=== PATIENT | male | born 2005 | race Caucasian/White ===

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

== ENCOUNTER 2024-01-19 02:17 | Emergency (ER) | payer BC, MEDICAID, SELFPAY ==
[2024-01-19 02:28] VITALS: BP 118/67; PULSE 79; RESP 16; TEMP 36.7; O2SAT 96
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
[2024-01-19 03:05] VITALS: BP 118/67; PULSE 66; RESP 14; O2SAT 96
[2024-01-19 03:35] VITALS: BP 100/56; PULSE 79; RESP 14; O2SAT 94
[2024-01-19 04:05] VITALS: BP 101/53; PULSE 74; RESP 15; O2SAT 95
== END 2024-01-19 04:20 | disposition home or self-care (01) ==
PROVIDERS: Emergency Provider Emergency Medicine; PCP Family Medicine
DX: S00.03XA Contusion of scalp, initial encounter (principal); Y04.2XXA Assault by strike against or bumped into by another person, initial encounter
CPT/HCPCS: 70450; 70486; 73130; 99284

== ENCOUNTER 2024-02-10 10:54 | Emergency (ER) | payer OTHER, SELFPAY ==
[2024-02-10 10:56] VITALS: BP 127/77; PULSE 88; RESP 18; TEMP 36.4; O2SAT 99
--- NOTE | 2024-02-10 10:56 | CT_ITS ---
WS: [id number] CT HEAD NONCONTRAST HISTORY: Seizure TECHNIQUE: Contiguous axial imaging performed through the brain in 2.5 mm imaging. Bone and soft tiss ue windows. Sagittal and coronal reformats reviewed. All CT scans at [facility] use at least one of these dose optimization techniques: automated exposure control; mA and/or kV adjustment per pa tient size (includes targeted exams where dose is matched to clinical indication); or iterative recon struction. DLP: 1024.58 mGy.cm COMPARISON: 12/30/2023 No acute intracranial hemorrhage, midline shift or mass effect. No atrophy or prior infarcts or herniation. Ventricles: Normal size with no hydrocephalus. Paranasal sinuses: As visualized are clear. Mastoid air cells: Well pneumatized. Calvarium and scalp: Skull is intact with no soft tissue edema or swelling. CT/CT head wo con* [id number] IMPRESSION: Negative head CT.
--- NOTE | 2024-02-10 11:01 | PC.NURSE ---
SEIZURE PADS PLACED ON BED RAILS.
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
[2024-02-10 11:30] VITALS: BP 128/79; PULSE 83; O2SAT 99
[2024-02-10 12:28] LABS: Basophils % 0.3 %; Lymphocytes # 0.7 10^3/uL (1.5-6.5); Lymphocytes % 7.5 %; Mean Corpuscular HGB Conc 33.8 g/dL (30-55); Mean Corpuscular Hemoglobin 31.1 pg (27-33); Mean Platelet Volume 11.7 fL (7.4-10.4); Monocytes # 0.3 10^3/uL (0.2-0.9); Monocytes % 3.3 %; Neutrophils # 7.98 10^3/uL (1.8-8.0); Neutrophils % 88.2 %; Nucleated Red Blood Cells % 0 %; Platelet Count 188 10^3/cmm (157-399); Red Blood Count 4.89 10^6/uL (3.85-5.65); Red Cell Distribution Width 11.8 % (12.1-15.1); White Blood Count 9.05 10^3/uL (4.5-13.0)
[2024-02-10 12:30] VITALS: BP 108/61; PULSE 52; O2SAT 97
[2024-02-10 12:31] LABS: Amphetamines Screen Urine Negative (Negative); Barbiturates Screen Urine Negative (Negative); Benzodiazepines Screen Urine Negative (Negative); Cocaine Screen Urine Negative (Negative); Opiate Screen Urine Negative (Negative); PCP Screen Urine Negative (Negative); THC Screen Urine Positive (Negative)
[2024-02-10 13:02] LABS: Lactic Sepsis W/Reflex 1.2 mmol/L (0.5-2.2)
[2024-02-10 13:03] LABS: Alanine Aminotransferase 11 U/L (0-41); Alkaline Phosphatase 96 U/L (40-130); Anion Gap 13.2 (5-19); Aspartate Amino Transferase 13 U/L (0-40); Blood Urea Nitrogen 17 mg/dL (6-20); Calcium 9.3 mg/dL (8.5-10.5); Carbon Dioxide 25 mmol/L (22-29); Chloride 104 mmol/L (98-107); Creatine Phosphokinase 211 U/L (39-308); Creatinine Clr Calc Pharmacy 145.3706; Globulin 2.3 g/dL (1.3-4.6); Glomerular Filtration Rate 124.5 mL/min (90-130); Glucose 102 mg/dL (65-115); Osmolality Calculated 286 mOsm/kg (285-295); Potassium 5.2 mmol/L (3.5-5.1); Sodium 137 mmol/L (136-145); Total Bilirubin 0.4 mg/dL (0.15-1.2); Total Protein 7.3 g/dL (6.6-8.7)
[2024-02-10 13:07] LABS: Alcohol Level < 10 mg/dL (0-10)
[2024-02-10 13:16] LABS: Add Urine Culture? No; Add Urine Microscopic? YES; Bacteria Urine TRACE /hpf; Bilirubin Urine Neg (Negative); Blood Urine Trace (Negative); Glucose Urine UA Norm (Normal); Ketones Urine 1+ (Negative); Leukocyte Esterase Urine Negative (Negative); Nitrate Urine Negative (Negative); Protein Urine Neg (Negative); RBC Urine RARE /hpf (0-2); Specific Gravity, Urine 1.025 (1.005-1.030); Squamous Epithelial Cell Urine 0-4 /hpf (0-5); Urine Appearance Clear (CLEAR); Urine Color Yellow (Yellow); Urobilinogen Urine Norm (Negative); pH Urine 5 (5-7)
[2024-02-10 13:30] VITALS: BP 109/59
[2024-02-10] MEDS: acetaminophen 325 mg Tablet 650 MG PO (13:52)
[2024-02-10 14:11] VITALS: BP 108/52; PULSE 68; O2SAT 100
--- NOTE | 2024-02-10 14:34 | DCPLANNER ---
faxed outpatient order to scheduling for f/u
== END 2024-02-10 14:12 | disposition home or self-care (01) ==
PROVIDERS: Emergency Provider Family Medicine; PCP Family Medicine
DX: G40.89 Other seizures (principal)
CPT/HCPCS: 36415; 70450; 80053; 80306; 80307; 81001; 82550; 83605; 85025; 99284